=== PATIENT | male | born 1995 | race Caucasian/White ===

== ENCOUNTER 2022-11-12 15:21 | Emergency (ER) | payer OTHER ==
--- OUTSIDE RECORDS SUMMARY | 2022-11-12 15:25 | XMS REPORT | Continuity of Care Document ---
:1995 Author Organization [facility] t Address [address] [facility] [address] [place] [address] Care Team Providers Name Role Phone Livier Hernandez MD Primary Care Physician Valeriy Walden Attending Clinician Unavailable Livier Hernandez MD Attending Clinician Physician, No Primary or Family Admitting Clinician Unavaila ble Payers Payer Name Policy Type Policy Number Effective Date Expiration Date S ource Problems Condition Condition Condition Status Onset Resolution Last Treating Co mments Source Name Details Category Date Date Treatment Clinician Date Disorder Disorder Disease Active [facility] di of male of male 09-28 genital genital 00:00: Hospita organs organs 00 l Tinnitus Tinnitus Disease Active Overview: Me thodi 09-[address] 00:00: g of this Hospita 00 note l might be different from the original. Formattin g of this note might be different from the original. Allergies, Adverse Reactions, Alerts Allergy Allergy Status Severity Reaction(s) Onset Inactive Treating Comm ents Source Name Type Date Date Clinician No Known DA Active U 2021-05 [facility]ie 07-25 [facility] 00:00: [facility] are [place] Family History Family Member Diagnosis Comments Start Date Stop Date Source Natural mother Colon polyps [facility] Social History Social Habit Start Date Stop Date Quantity Comments Source Gender [facility] Tobacco use and 2022-03-18 2022-03-18 Smokeless [facility] exposure 00:00:00 00:00:00 tobacco non-user Hospital History of Social 2022-03-18 2022-03-[address] function 00:00:00 00:00:00 [facility] Alcohol intake 2022-03-18 2022-03-18 Ex-drinker [facility] 00:00:00 00:00:00 (finding) Hospital Sex Assigned At [birth year] [facility] 00:00:00 00:00:00 Hospital Smoking Status Start Date Stop Date Source Never smoked tobacco [facility] Medications Ordered Filled Start Stop Current Ordering Indication Dosage Frequency Signature Comments Components Source Medication Medication Date Date Medication? Clinician (SIG) Name Name predniSONE 2021-05- Take 4 Meth shiloh (DELTASONE) 03-[address] 10 mg 00:00: 04:59 [facility] a tablet 00 :00 1, take 3 l tabs by mouth on day 2, take 2 tabs by mouth on day 3, take 1 tab by mouth on day 4 predniSONE 2021-05- No Take 4 Meth shiloh (DELTASONE) 03-[address] 10 mg 00:00: 04:59 mouth day Hospit a tablet 00 :00 1, take 3 l tabs by mouth on day 2, take 2 tabs by mouth on day 3, take 1 tab by mouth on day 4 Immunizations Ordered Immunization Filled Immunization Date Status Commen ts Source Name Name Meningococcal MCV4P 2011-12-07 Completed [facility] 00:00:00 [facility] Meningococcal MCV4P 2011-12-07 Completed [facility] 00:00:00 [facility] Meningococcal MCV4P 2009-01-17 Completed [facility] 00:00:00 Hospital Meningococcal MCV4P 2009-01-17 Completed [facility] 00:00:00 Hospital IPV 2005-06-26 Completed [facility] 00:00:00 Hospital Td, Unspecified 2005-06-26 Completed [facility] 00:00:00 Hospital IPV 2005-06-26 Completed [facility] 00:00:00 Hospital Td, Unspecified 2005-06-26 Completed [facility] 00:00:00 Hospital IPV 2005-03-16 Completed [facility] 00:00:00 Hospital IPV 2005-03-16 Completed [facility] 00:00:00 Hospital IPV 2005-01-14 Completed [facility] 00:00:00 Hospital MMR 2005-01-14 Completed [facility] 00:00:00 Hospital IPV 2005-01-14 Completed [facility] 00:00:00 Hospital MMR 2005-01-14 Completed [facility] 00:00:00 Hospital Vital Signs Vital Name Observation Time Observation Value Comments Source Systolic blood 2022-03-18 18:11:00 117 mm[Hg] [facility] pressure Diastolic blood 2022-03-18 18:11:00 72 [facility]Hg[facility] Heart rate 2022-03-18 18:11:00 62 /min [facility] Body height 2022-03-18 18:11:00 190.5 cm [facility] Body weight 2022-03-18 18:11:00 103.42 kg [facility] BMI 2022-03-18 18:11:00 28.50 kg/m2 [facility] Oxygen saturation in 2022-03-18 18:11:00 97 /min [facility] Arterial blood by Pulse oximetry Procedures Procedure Date / Time Performed Performing Clinician Sour e CBC WITH PLATELET AND 2022-03-18 18:34:00 [facility] WITH PLATELET AND 2022-03-18 18:34:00 Livier Hernandez Method [facility] DIFFERENTIAL Plan of Care Planned Activity Planned Date Details Comments Source Future Scheduled 2022-11-12 INFLUENZA VACCINE [facility] Test 15:24:09 [code = INFLUENZA Hospital VACCINE] Future Scheduled 2022-11-12 COVID-19 VACCINE Postponed from [facility] Test 15:24:09 (#1) [code = 01/01/1994 Hospital COVID-19 VACCINE (Patient Refused) (#1)] Future Scheduled 2022-11-12 Hepatitis C Postponed from [facility] Test 15:24:09 screening 2011 (Not Hospital (procedure) [code Indicated) = 042046097] Future Scheduled 2022-05-12 INFLUENZA VACCINE Postponed from [facility] Test 15:25:00 [code = INFLUENZA 12/29/2021 Hospital VACCINE] (Patient Refused) Future Scheduled 2022-05-12 COVID-19 VACCINE Postponed from [facility] Test 15:25:00 (#1) [code = 01/01/1994 Hospital COVID-19 VACCINE (Patient Refused) (#1)] Future Scheduled 2022-05-12 Hepatitis C Postponed from [facility] Test 15:25:00 screening 2011 (Not Hospital (procedure) [code Indicated) = 331077040] Encounters Start End Encounter Admission Attending Care Care Encounter Source Date/Time Date/Time Type Type Clinicians Facility Department ID 2022-05-24 2022-05-24 Emergency EM Win, [facility] ARIADNE [id number] [facility] 18:07:00 22:00:[address] [place] [address] [place] 2022-03-18 2022-03-18 Office Livier Hernandez 1.2.840.1 [id number] Methodi 13:00:00 13:35:[address] 3.430.2.7 Hospit a .3.922940 l .8 2022-03-18 2022-03-18 Office Livier Hernandez 1.2.840.1 [id number] 21 [id number] Method[facility] 13:00:00 13:35:[address] 3.430.2.7 Hospit a .3.060121 l .8 2022-03-18 2022-03-18 Travel 1.2.840.1 1.2.454.336 0162 [id number] Methodi 00:00:00 00:00:[address] 3.430.2.7 0.2.7.3.698 Ho spita .3.235918 084.8 l .8 2022-03-18 2022-03-18 Travel 1.2.840.1 1.2.650.256 6723 [id number] Methodi 00:00:00 00:00:[address] 3.430.2.7 0.2.7.3.698 Ho spita .3.349419 084.8 l .8 2022-03-12 2022-03-12 Travel 1.2.840.1 1.2.393.647 1124 [id number] Methodi 00:00:00 00:00:[address] 3.430.2.7 0.2.7.3.698 Ho spita .3.015290 084.8 l .8 2022-03-12 2022-03-12 Travel 1.2.840.1 1.2.386.194 0588 [id number] Methodi 00:00:00 00:00:[address] 3.430.2.7 0.2.7.3.698 Ho spita .3.485949 084.8 l .8 Results Test Description Test Time Test Comments Results Result [facility] e Comments - US SCROTUM AND 2022-05-24 CNTS 21:28:00 [facility] : 1995 Sex: M Adam riverant Name: AMADA DOWNEY Unit No: [id number] EXAMS: CPT: [id number] US SCROTUM AND CNTS 02158 ULTRASOUND SCROTUM: CLINICAL HISTORY: Left testicular pain FINDINGS: 2-D grayscale, pulsewave, and/or color Doppler was performed. The right testicle measures 4.2 x 2.2 x 2.7 cm. The left testicle measures 3.8 x 1.9 x 3.5 cm. There is good Doppler signal in both testicles. The epididymal heads are symmetric. There is a trace left hydrocele. IMPRESSION: Negative testicular ultrasound. at 2128 Reported and signed by: Jh Quick MD CC: Antonio Streeter NYLON WINDER; Valeriy Walden MD Technologist: Simon Macias Probe: Trscr Dt/Tm: 05/24/2022 (2127) by:[email or web address] Orig Print D/T: S: 05/24/2022 (2131) BATCH NO: N/A Name: AMADA DOWNEY Phys: [id number] - MutenderAntonio silver [facility] : 1995 Age: 26 Sex: M Francisco,Jose Loc: T.ERS Exam Date: 05/24/2022 Status: REG ER PH: FAX: PAGE 1 Signed Report URINALYSIS COMPLETE 2022-05-24 20:08:00 Test Item Value Reference Range Interpretation Comme nts UA COLOR (test code = COLU) Yellow YELLOW UA APPEARANCE (test code = CLEAR CLEAR APPU) UA GLUCOSE DIPSTICK (test NEG MG/DL NEGATIVE code = DGLUU) UA BILIRUBIN DIPSTICK (test NEG NEGATIVE code = BILU) UA KETONE DIPSTICK (test code 1+ MG/DL NEGATIVE A = KETU) UA SPECIFIC GRAVITY (test 1.033 1.000-1.030 A code = SGU) UA BLOOD DIPSTICK (test code NEG NEGATIVE = GREYSON) UA PH DIPSTICK (test code = 6.5 4.5-8.5 KRISTI) UA PROTEIN DIPSTICK (test TRACE MG/DL NEGATIVE A code = PROU) UA UROBILINOGEN DIPSTICK 4.0 EU/dL See_Comment A [A utomated message] The (test code = URO) system [facility] generated this result transmit kamran reference range : <=1.0. The reference range was not used to interpr et this result as jerome l/abnormal. UA NITRITE DIPSTICK (test NEG NEGATIVE code = SABRINA) UA LEUKOCYTE ESTERASE NEG NEGATIVE DIPSTICK (test code = LEUU) UA WBC (test code = WBCU) 0-3 /HPF 0-3 UA RBC (test code = RBCU) 0-3 /HPF 0-3 UA BACTERIA (test code = NONE SEEN /HPF NONE SEEN BACU) UA SQUAMOUS CELLS (test code RARE /HPF NONE-FEW = SQU) UA MUCUS (test code = MUCU) RARE /LPF NONE-FEW - CT ABD PELVIS W/O [id number] 19:27:00 [facility] : 1995 Sex: MPatient Name: AMADA DOWNEY Unit No: [id number] EXAMS: CPT: [id number] CT ABD PELVIS W/O CONT 72935 EXAM - CTABD PELVIS W/O CONT HISTORY: left flank pain COMPARISON: None. CT imaging was performed with iterative reconstruction technique and/or automated exposure control to reduce radiation dose. DLP: 921.79 mGy*cm FINDINGS: Evaluation of solid organs, bowel, and vascular structures is limited without IV and GI contrast. Linear scarring or subsegmental atelectasis in the lingula. No renal calculi, hydronephrosis, hydroureter is identified. The unenhanced liver, spleen, adrenal glands, and pancreas are unremarkable on this noncontrast study. Gallbladder is contracted. No free fluid or free air are identified. No retroperitoneal lymphadenopathy. Normal size abdominal aorta. No bowel dilatation or obvious bowel wall thickening. Appendix is normal in caliber. No pelvic free fluid or bladder calculi. No significant osseous abnormality seen. IMPRESSION: No radiopaque renal calcification, hydronephrosis, or hydroureter. at 1927 Reported and signed by: Kaur Ochoa MD Name: AMADA DOWNEY [facility] [place] Phys: [id number] - MutenderjohniAntonio [facility] 1995 Age: 26 Sex: M Jose Singh Loc: T.ERS Exam Date: 022 Status: REG ER PH: FAX: PAGE 1 Signed Report (CONTINUED) Patient Name: AMADA DOWNEY Unit No: [id number] EXAMS: CPT: [id number] CT ABD PELVIS W/O CONT 62311 (Continued) CC: Antonio Streeter NYLON WINDER; Valeriy Walden MD Technologist: Allan Quinonez CTDI: 14.09 DLP: 921.79 Trscr Dt/Tm: 05/24/2022 (1926) by:[email or web address] Orig Print D/T: S: 05/24/2022 (1929) BATCH NO: N/A Name: AMADA DOWNEY Francisco Phys: [id number].[email or web address] - Ferdinand,Antonio 605 [facility] : 1995 Age: 26 Sex: Jose Echeverria Loc: TGUMARO Exam Date: 05/24/2022 Status: REG ER PH: FAX: PAGE 2 Signed ReportCBC with platelet and [id number] 09:07:00 Test Item Value Reference Range Interpretation Comments WBC (test code = See_Comment [Automated 4790-2) message] The system which generated this result transmitted reference range : 3.8 - 10.8 Thousand/uL. Th e reference range was not used to interpret this result as normal/abnormal . RBC (test code = See_Comment [Automated 299-8) message] The system which generated this result transmitted reference range : 4.20 - 5.80 Million/uL. The reference range was not used to interpret this result as normal/abnormal . HGB (test code = 14.9 g/dL 13.2-17.1 718-7) HCT (test code = 42.3 % 38.5-50.0 4544-3) MCV (test code = 88.3 fL 80.0-100.0 787-2) MCH (test code = 31.1 pg 27.0-33.0 785-6) MCHC (test code = 35.2 g/dL 32.0-36.0 786-4) RDW (test code = 11.7 % 11.0-15.0 788-0) Platelet count (test See_Comment [Autom ated code = 777-3) message] The system which generated this result transmitted reference range : 140 - 400 Thousand/uL. Th e reference range was not used to interpret this result as normal/abnormal . MPV (test code = 10.4 fL 7.5-12.5 776-5) Neutrophils, See_Comment [Automated absolute (test code message] The = 751-8) system which generated this result transmitted reference range : 1,500 - 7,800 cells/uL. The reference range was not used to interpret this result as normal/abnormal . Lymphocytes, See_Comment [Automated absolute (test code message] The = 731-0) system which generated this result transmitted reference range : 850 - 3,900 cells/uL. The reference range was not used to interpret this result as normal/abnormal . Monocytes, absolute See_Comment [Automa kamran (test code = 742-7) message] The system which generated this result transmitted reference range : 200 - 950 cells/uL. The reference range was not used to interpret this result as normal/abnormal . Eosinophils, See_Comment H [Automated absolute (test code message] The = 711-2) system which generated this result transmitted reference range : 15 - 500 cells/uL. The reference range was not used to interpret this result as normal/abnormal . Basophils, absolute See_Comment [Automa kamran (test code = 704-7) message] The system which generated this result transmitted reference range : 0 - 200 cells/u L. The reference range was not used to interpr et this result as normal/abnormal . Neutrophils (test 45.1 % code = 770-8) Lymphocytes (test 38.9 % code = 736-9) Monocytes (test code 8.1 % = 5905-5) Eosinophils (test 7.0 % code = 713-8) Basophils + RC (test 0.9 % code = 706-2) RAC (test code = Performing RAC) Organization Information: Site ID: [facility] Name: [email or web address] Lab Address: [address] [place] [id number] Director: Jh Chow Lab Interpretation Abnormal (test code = 96465-6) [facility] with platelet and [id number] 09:07:00 Test Item Value Reference Range Interpretation Comments WBC (test code = 8.2 See_Comment [Automated 7190-2) message] The system which generated this result transmitted reference range : 3.8 - 10.8 Thousand/uL. Th e reference range was not used to interpret this result as normal/abnormal . RBC (test code = 4.79 See_Comment [Automated 789-8) message] The system which generated this result transmitted reference range : 4.20 - 5.80 Million/uL. The reference range was not used to interpret this result as normal/abnormal . HGB (test code = 14.9 g/dL 13.2-17.1 718-7) HCT (test code = 42.3 % 38.5-50.0 4544-3) MCV (test code = 88.3 fL 80.0-100.0 787-2) MCH (test code = 31.1 pg 27.0-33.0 785-6) MCHC (test code = 35.2 g/dL 32.0-36.0 786-4) RDW (test code = 11.7 % 11.0-15.0 788-0) Platelet count (test 291 See_Comment [Autom ated code = 777-3) message] The system which generated this result transmitted reference range : 140 - 400 Thousand/uL. Th e reference range was not used to interpret this result as normal/abnormal . MPV (test code = 10.4 fL 7.5-12.5 776-5) Neutrophils, 3698 See_Comment [Automated absolute (test code message] The = 751-8) system which generated this result transmitted reference range : 1,500 - 7,800 cells/uL. The reference range was not used to interpret this result as normal/abnormal . Lymphocytes, 3190 See_Comment [Automated absolute (test code message] The = 731-0) system which generated this result transmitted reference range : 850 - 3,900 cells/uL. The reference range was not used to interpret this result as normal/abnormal . Monocytes, absolute 664 See_Comment [Automa kamran (test code = 742-7) message] The system which generated this result transmitted reference range : 200 - 950 cells/uL. The reference range was not used to interpret this result as normal/abnormal . Eosinophils, 574 See_Comment H [Automated absolute (test code message] The = 711-2) system which generated this result transmitted reference range : 15 - 500 cells/uL. The reference range was not used to interpret this result as normal/abnormal . Basophils, absolute 74 See_Comment [Automa kamran (test code = 704-7) message] The system which generated this result transmitted reference range : 0 - 200 cells/u L. The reference range was not used to interpr et this result as normal/abnormal . Neutrophils (test 45.1 % code = 770-8) Lymphocytes (test 38.9 % code = 736-9) Monocytes (test code 8.1 % = 5905-5) Eosinophils (test 7.0 % code = 713-8) Basophils + RC (test 0.9 % code = 706-2) RAC (test code = Performing RAC) Organization Information: Site ID: [facility] Name: [email or web address] Lab Address: [address] [place] [id number] Director: Jh Chow Lab Interpretation Abnormal (test code = 19213-5) [facility] Notes Date/Time Note Provider Source 2022-05-24 19:59:00-00:00 [facility] [place] ([facility]) EMERGENCY PROVIDER REPORT REPORT#:[id number] REPORT STATUS: Signed DATE:05/24/22 TIME: 1958 PATIENT: AMADA DOWNEY UNIT #: [id number] ROOM: BED: AGE: 26 SEX: M PCP PHYS: No Primary or Family Ph ysician SERVICE AUTHOR: Antonio Streeter NYLON WINDER * ALL edits or amendments must be made on the [employer]/computer document * HPI- Male General Confirmed Patient Yes Patient Type Existing patient Initial Greet Date/Time 05/24/221811 Assumed Care at Time 1811 Presentation Chief Complaint Testicle painful L, Testicle swo llen L Hx Obtained From Patient Onset Occurred Sudden Symptom Duration Since onset Progression since Onset Unchanged Free Text HPI Notes Free Text HPI Notes 26-year-old male presents emergency room with ch ief complaint of pain to the left testicle. Reports that pain started today.. Patient reports that pain is progressively worsening. Pain radiates t o the left suprapubic region. And left flank area. Denies trauma or injury. Denies feve r, dysuria, concern for STD. Risk- Male Risk Stratification Torsion Risk factors reviewed, Risk factors N/A Review of Systems ROS Statements All systems rev neg except as marked. Focused Review of Systems Constitutional Denies: Chills, Fatigue, Fever, Lethargy, Malais e, Recent wt loss, Weakness - generalized. GI Denies: Abdominal pain, Anorexia, Belching, Bloo dy/tarry stool, Constipation, Diarrhea, Dysphagia, Hematemesis, Hemato chezia, Mucousy stool, Melena, Nausea, Rectal pain, Vomiting. Male Reports: Scrotal swelling, Testicular swelling. Denies: Dysuria, Flank pain, Hematuria, Incontinence, Nocturia, Penil e discharge, Penile lesion, Testicular pain, Urinary frequency, Urinary urgency, Urinat ion decreased, Urination increased. Musculoskeletal Denies: Back pain, Extremity pain, Extremity swe lling, Joint pain, Joint swelling, Lumbar pain, Myalgia, Neck pain, Thora cic pain. Skin Denies: Abrasion, Abscess, Burn, Contusion, Diap horesis, Erythema, Itching, Jaundice, Laceration, Rash, Swelling, Ulceration . Past Medical History - Adult Stated Complaint TESTICLE Allergies Coded Allergies: No Known Allergies (05/24/22) Calculated Suicide Risk (nurs) No risk Review of Nursing Notes Rev avail, and agree Smoking status for patients 13 years old or olde r: Never Smoker Physical Exam Vital Signs Vital Signs First Documented: Result Date Time Pulse Ox 99 05/24 1815 B/P 142/82 05/24 1815 B/P Mean 102 05/24 1815 Temp 36.8 05/24 1815 Pulse 77 05/24 1815 Resp 18 05/24 1815 O2 Delivery Room air 05/24 2115 Last Documented: Result Date Time Pulse Ox 99 05/24 2226 B/P 135/80 05/24 2226 B/P Mean 98 05/24 2226 O2 Delivery Room air 05/24 2226 Temp 36.8 05/24 2226 Pulse 82 05/24 2226 Resp 18 05/24 2226 Review of Vital Signs Reviewed, Vital signs norm al Focused PE General/Const General/Const Awake, Alert, No acute di stress, Well appearing, Well developed , Well hydrated Abdomen/GI Abdomen/GI Atraumatic, Soft, Non-tender Skin Skin Atraumatic, Color NL, No rash, War m, Dry, Intact, Turgor NL, No swelling Genitourinary Male Genitourinary Atraumatic, Inspection NL, P guillermina NL, No penile discharge, No meatal blood, Testes NL, Cremasteric reflex N L, Epididymis NL, No mass, No hernia, No lesions or rash, Scrotal/perineal ski n NL Interpretation Diagnostics Lab Results Interpretation Results Laboratory Tests: 05/24 1848 Urines Urine Color (YELLOW) Yellow Urine Appearance (CLEAR) CLEAR Urine pH (4.5 - 8.5) 6.5 Ur Specific Ellery (1.000 - 1.030) 1.033 H Urine Protein (NEGATIVE MG/DL) TRACE A Urine Glucose (UA) (NEGATIVE MG/DL) NEG Urine Ketones (NEGATIVE MG/DL) 1+ A Urine Blood (NEGATIVE) NEG Urine Nitrite (NEGATIVE) NEG Urine Bilirubin (NEGATIVE) NEG Urine Urobilinogen (<=1.0 EU/dL) 4.0 H Ur Leukocyte Esterase (NEGATIVE) NEG Urine RBC (0 - 3 /HPF) 0-3 Urine WBC (0 - 3 /HPF) 0-3 Ur Squamous Epith Cells (NONE - FEW /HPF) RARE Urine Bacteria (NONE SEEN /HPF) NONE SEEN Urine Mucus (NONE - FEW /LPF) RARE Recent Impressions: CAT SCAN - CT ABD PELVIS W/O CONT 05/24 1822 Report Impression - Status: SIGNED Entered: 05/24/20221929 IMPRESSION: No radiopaque renal calcification, hydronephrosi s, or hydroureter. Impression By: [email or web address] - Kaur Ochoa MD ULTRASOUND - US SCROTUM AND CNTS 05/24 2100 Report Impression - Status: SIGNED Entered: 05/24/20222131 IMPRESSION: Negative testicular ultrasound. Impression By: [email or web address] - Jh Quick MD Lab Imaging Statement Laboratory radiographic studies reviewed and con sidered in the medical decision-making. Re-Evaluation MDM Re-Evaluation/Progress Re-Evaluation/Progress Time of Re-Eval 2152 Re-Eval Status Improved Eval Following Treatment Pt. feels better ED Course Medication(s) Ordered Medication(s) Ordered: Central Nervous System Agents Sig/Maxime Start time Last Medication Dose Route Stop Time Status Admin Hydrocodone Bitart/ 1 TAB X1ED STA 05/24 1820 D C 05/24 Acetaminophen PO 05/24 Ketorolac 30 MG X1ED STA 05/24 1820 DC 05/24 Tromethamine IM 05/24 1821 184 Patient Discharge Departure Vital Signs/Condition Vital Signs First Documented: Result Date Time Pulse Ox 99 05/24 1815 B/P 142/82 05/24 1815 B/P Mean 102 05/24 1815 Temp 36.8 05/24 1815 Pulse 77 05/24 1815 Resp 18 05/24 1815 O2 Delivery Room air 05/24 2115 Last Documented: Result Date Time Pulse Ox 99 05/24 2226 B/P 135/80 05/24 2226 B/P Mean 98 05/24 2226 O2 Delivery Room air 05/24 2226 Temp 36.8 05/24 2226 Pulse 82 05/24 2226 Resp 18 05/24 2226 All vital signs available at the time of this en try have been reviewed. Condition Stable Clinical Impression Clinical Impression Primary Impression: Hydrocele of testis Disposition Decision Discharge )( Discharged to Home Yes )( Time 2152 )( Date 05/24/22 Discharge/Care Plan Counseled Regarding Diagnosi s, Lab results, Imaging studies, Prescriptions, Need for follow-up, When to return to ED (Auto) Prescriptions Current Visit Scripts Ketorolac (Toradol) 10 MG PO Q6H PRN PRN PAIN Ketorolac (Toradol) 10 MG PO Q6H PRN PRN PAIN # 20 TABS Prescriptions Reviewed Risks, Benefits, Alternat radha treatment Patient Instructions ED Hydrocele, Type Not Spec ified, ED Testicular Pain, Unclear Cause Referrals Provider Referral: [place] Mendoza MD Address: [address] [place] [address] 4 [address] [place] [address] Discharge Note I have spoken with the patie nt and/or caregivers. I have explained the patient's condition, diagnoses and verito atment plan based on the information available to me at this time. I have answered the patient's and/ or caregiver's questions and addressed any concerns. The patient and/or careg joanne have as good an understanding of the patient 's diagnosis, condition and treatment plan as can be expected at this point. The vital signs have bee n stable. The patient's condition is stable and appr opriate for discharge from the emergency department. The patient will pursue further outpatient evalu ation with the primary care physician or other designated or consulting phys ician as outlined in the discharge instructions. The patient and/or caregivers are agreeable to this plan of care and follow-up instructions have been exp lained in detail. The patient and/or caregivers have received these instructio ns in written format and have expressed an understanding of the discharge inst ructions. The patient and/or caregivers are aware that any significant change in condition or worsening of symptoms should prompt an immediate return to [facility] or the closest emergency department or a call to 911. at [phone] Electronically Signed by Valeriy Walden MD on at [id number] RPT #:[id number] END OF REPORT
[2022-11-12] MEDS ORDERED: TRAMADOL HCL 50 MG TAB ONE (16:10)
[2022-11-12] MEDS ORDERED: ACETAMINOPHEN 325 MG TABLET ONE (16:10)
[2022-11-12] MEDS ORDERED: IBUPROFEN 400 MG TAB ONE (16:11)
--- NOTE | 2022-11-12 17:20 | ER ---
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 ll1 Coronavirus screen: Client denies travel out of the [place] in the last 14 days. At this time, the client does not indicate any symptoms associated with coronavirus-19. Ebola Screen: Patient denies travel to an Ebola-affected area in the 21 days before illness onset. Initial Sepsis Screen: Does the patient meet any 2 criteria? No. Patient's initial sepsis screen is negative. Does the patient have a suspected source of infection? No. Patient's initial sepsis screen is negative. Risk Assessment: Do you want to hurt yourself or someone else? Patient reports no desire to harm self or others. Onset of symptoms was November 12, 2022. 15:31 Method Of Arrival: Ambulatory 1 15:31 Acuity: CHAPIS 4 ll1 Triage Assessment: 15:35 General: Appears uncomfortable, Behavior is calm, cooperative, appropriate for age. ll1 Pain: Complains of pain in L ankle Pain currently is 8 out of 10 on a pain scale. Quality of pain is described as aching. Musculoskeletal: Circulation, motion, and sensation intact. Capillary refill < 3 seconds, Swelling present in L ankle. Injury Description: Bruise. 16:42 Cardiovascular: No deficits noted. Respiratory: No deficits noted. os Historical: - Allergies: 15:30 No Known Allergies; ll1 - PMHx: 15:30 None; ll1 - PSHx: 15:30 None; ll1 - Immunization history:: Client reports having NOT received the Covid vaccine. - Social history:: Smoking status: Patient denies any tobacco usage or history of. Screenin:42 [facility] ED Fall Risk Assessment (Adult) History of falling in the last 3 months, os including since admission No falls in past 3 months (0 pts) Confusion or Disorientation No (0 pts) Intoxicated or Sedated No (0 pts) Impaired Gait No (0 pts) Mobility Assist Device Used No (0 pt) Altered Elimination No (0 pt) Score/Fall Risk Level 0 - 2 = Low Risk Oriented to surroundings, Maintained a safe environment. Abuse screen: Denies threats or abuse. Nutritional screening: No deficits noted. Tuberculosis screening: No symptoms or risk factors identified. Assessment: 17:46 Reassessment: Patient appears in no apparent distress at this time. Patient and/or iw family updated on plan of care and expected duration. Pain level reassessed. Patient is alert, oriented x 3, equal unlabored respirations, skin warm/dry/pink. Vital Signs: 15:31 BP 129 / 67; Pulse 60; Resp 16; Temp 97.9; Pulse Ox 98% ; Weight 108.86 kg; Height 6 ll1 ft. 3 in. ; Pain 8/10; 17:43 BP 125 / 71; Pulse 74; Resp 16; Pulse Ox 99% ; os 15:31 Body Mass Index 30.00 (108.86 kg, 190.5 cm) ll1 15:31 Pain Scale: Adult ll1 ED Course: 15:23 Patient arrived in ED. mr 15:24 Kaitlin Chaney, SHIRLEY is Primary Nurse. ll1 15:26 Alok Keys PA is PHCP. cp 15:26 Sowmya Anna MD is Attending Physician. cp 15:31 Triage completed. ll1 15:31 Arm band placed on Patient placed in an exam room, on a stretcher. ll1 16:42 No provider procedures requiring assistance completed. os 16:43 Patient has correct armband on for positive identification. Bed in low position. Call os light in reach. Side rails up X 1. Side rails up X2. 17:18 XRAY Ankle LEFT 3 view In Process Unspecified. EDMS 17:46 Patient did not have IV access during this emergency room visit. iw Administered Medications: 16:05 Drug: Ibuprofen PO 800 mg Route: PO; ll1 17:44 Follow up: Response: No adverse reaction os 16:05 Drug: traMADol PO 50 mg Route: PO; ll1 17:44 Follow up: Response: No adverse reaction os 16:05 Drug: Acetaminophen PO 650 mg Route: PO; ll1 17:44 Follow up: Response: No adverse reaction os Medication: 16:43 VIS not applicable for this client. os Outcome: 17:20 Discharge ordered by . cp 17:46 Discharged to home ambulatory, with crutches. iw 17:46 Condition: good 17:46 Discharge instructions given to patient, Instructed on discharge instructions, follow up and referral plans. Demonstrated understanding of instructions, follow-up care, medications, Prescriptions given X 1. 17:46 Patient left the ED. iw Signatures: Dispatcher [employer] aTmara RodriguezJess RN RN iw Alok Keys PA PA cp Lewis, Lynsay RN RN ll1 Soco Tejeda RN RN os Corrections: (The following items were deleted from the chart) 15:34 15:31 BP 129 / 67; Pulse 60bpm; Resp 16bpm; Pulse Ox 98%; 108.86 kg; Height 6 ft. 3 ll1 in.; BMI: 30.0; Pain 8/10, Adult; ll1
--- NOTE | 2022-11-12 17:20 | EDPHYS ---
Physician Documentation [facility] Name: Fuad Juarez Age: 27 yrs Sex: Male : 1995 Arrival Date: 11/12/2022 Time: 15:21 Bed 10 Private MD: ED Physician Sowmya Anna HPI: 11/12 15:45 This 27 yrs old Male presents to ER via Ambulatory with complaints of Foot Injury, cp Ankle Injury. 15:45 The patient presents with an injury, pain, that is acute. The complaints affect the cp left lateral ankle. Context: [place] resulted from stepping in hole in ground, the patient can fully bear weight, the patient is able to ambulate, with moderate difficulty. Onset: The symptoms/episode began/occurred just prior to arrival. 15:45 Modifying factors: the symptoms are aggravated by movement, weight bearing. Associated cp signs and symptoms: The patient has no apparent associated signs or symptoms. Treatment prior to arrival includes: no previous treatment. Historical: - Allergies: 15:30 No Known Allergies; ll1 - PMHx: 15:30 None; ll1 - PSHx: 15:30 None; ll1 - Immunization history:: Client reports having NOT received the Covid vaccine. - Social history:: Smoking status: Patient denies any tobacco usage or history of. ROS: 15:50 MS/extremity: Positive for pain, swelling, tenderness, of the left lateral ankle, cp Negative for deformity, paresthesias. 15:50 Constitutional: Negative for body aches, chills, fever. cp 15:50 Neck: Negative for pain with movement, pain at rest. 15:50 Respiratory: Negative for cough, shortness of breath, wheezing. 15:50 Back: Negative for pain at rest, pain with movement. Exam: 15:55 Constitutional: The patient appears in no acute distress, alert, awake, non-toxic, well cp developed, well nourished, overweight 15:55 Musculoskeletal/extremity: Extremities: grossly normal except: noted in the left cp lateral ankle: pain, swelling, tenderness, There is no evidence of decreased ROM, deformity, ROM: limited passive range of motion due to pain, in the left ankle, Pulses: noted to be 2+ in the left dorsalis pedis artery, the left ankle and left foot Sensation intact. Weight bearing: able to fully bear weight, Achilles tendon palpated and intact, no pain to palpation noted proximal left fifth metatarsal and/or proximal fibula. Vital Signs: 15:31 BP 129 / 67; Pulse 60; Resp 16; Temp 97.9; Pulse Ox 98% ; Weight 108.86 kg; Height 6 ll1 ft. 3 in. ; Pain 8/10; 17:43 BP 125 / 71; Pulse 74; Resp 16; Pulse Ox 99% ; os 15:31 Body Mass Index 30.00 (108.86 kg, 190.5 cm) ll1 15:31 Pain Scale: Adult ll1 MDM: 15:37 Patient medically screened. cp 16:00 Differential diagnosis: dislocation, open fracture, closed fracture, sprain, strain, cp Achilles rupture, foot fracture. 17:20 Data reviewed: vital signs, nurses notes, radiologic studies, plain films. 17:20 I considered the following discharge prescriptions or medication management in the emergency department Medications were administered in the Emergency Department. See MAR. Counseling: I had a detailed discussion with the patient and/or guardian regarding: the historical points, exam findings, and any diagnostic results supporting the discharge/admit diagnosis, radiology results, to return to the emergency department if symptoms worsen or persist or if there are any questions or concerns that arise at home. Response to treatment: the patient's symptoms have markedly improved after treatment, and as a result, I will discharge patient. 11/12 15:35 Order name: XRAY Ankle LEFT 3 view; Complete Time: 17:32 cp 11/12 17:32 Interpretation: Report reviewed. 11/12 15:35 Order name: Ice pack; Complete Time: 16:05 cp 11/12 17:18 Order name: Crutches; Complete Time: 17:44 cp 11/12 17:18 Order name: Walking boot; Complete Time: 17:44 cp 11/12 17:19 Order name: Steve wrap-joint; Complete Time: 17:44 cp Administered Medications: 16:05 Drug: Ibuprofen PO 800 mg Route: PO; ll1 17:44 Follow up: Response: No adverse reaction os 16:05 Drug: traMADol PO 50 mg Route: PO; ll1 17:44 Follow up: Response: No adverse reaction os 16:05 Drug: Acetaminophen PO 650 mg Route: PO; ll1 17:44 Follow up: Response: No adverse reaction os Disposition Summary: 11/12/22 17:20 Discharge Ordered Location: Home cp Problem: new cp Symptoms: have improved cp Condition: Stable cp Diagnosis - Sprain of ankle - left cp Followup: cp - With: Private Physician - When: 1 week - Reason: Recheck today's complaints Discharge Instructions: - Discharge Summary Sheet cp - Ankle Sprain cp - RICE Therapy for Routine Care of Injuries cp Forms: - Work release form cp - Medication Reconciliation Form cp - Thank You Letter cp - Antibiotic Education cp - Prescription Opioid Use cp Prescriptions: - Diclofenac Sodium 75 mg Oral Tablet Sustained Release - take 1 tablet by ORAL route 2 times per day; 30 tablet; Refills: 0, Product cp Selection Permitted Signatures: Dispatcher [employer] EDMS Alok Keys PA PA cp Kaitlin Chaney RN RN ll1 Soco Tejeda RN os Corrections: (The following items were deleted from the chart) 11/13 02:02 11/12 15:45 Onset: The symptoms/episode began/occurred today, cp cp
--- NOTE | 2022-11-12 17:29 | RAD REPORT ---
EXAM DESCRIPTION: RAD - Ankle Left 3 View - 11/12/2022 5:17 pm CLINICAL HISTORY: PAIN COMPARISON: No comparisons FINDINGS: Moderate soft tissue swelling is seen adjacent to the lateral malleolus. No fracture or di slocation.
[2022-11-12 17:53] VITALS: TEMP 97.9
[2022-11-12 17:54] VITALS: BP 125/71; O2SAT 99
== END 2022-11-12 17:46 | disposition home or self-care (01) ==
LOC: ER 15:21
DX: S93.402A Sprain of unspecified ligament of left ankle, initial encounter (principal)
CPT/HCPCS: 99283